=== PATIENT | male | born 1975 | race American Indian/Alaskan Native ===

== ENCOUNTER 2017-02-08 21:44 | Emergency (ER) | payer OTHER ==
[2017-02-08 21:45] VITALS: BMI 37.5
[2017-02-08 22:00] VITALS: RESP 17
--- NOTE | 2017-02-08 22:07 | ED PDOC ---
Arrival/HPI - General Chief Complaint: Seizure Time Seen by Provider: 02/08/17 21:45 Historian: Patient - History of Present Illness Narrative History of Present Illness (Text): 02/08/17 22:02 Tc Cooney is a 42 year old male, whose past medical history includes meningioma , seizure disorder, and asthma, who presents to the ED brought in by EMS accompanied by son status post seizure tonight. Son states patient fell off the bed, was convulsing and foaming at the mouth. Son states patient woke up soon afterwards. Patient states he currently feel fine, states he feels tired with slight headache. Patient notes his last seizure episode was almost 2 years ago. Patient is on Keppra BID (morning and evening), states he has been compliant, and took his usual dose tonight. Patient denies any vision changes, dizziness, neck pain, back pain, focal neurological deficits, nausea, vomiting, bladder incontinence, or any other complaints. Time/Duration: Other (tonight) Symptom Onset: Sudden Symptom Course: Improving Activities at Onset: Rest, Light Context: Home Past Medical History - Provider Review Nursing Documentation Reviewed: Yes - Infectious Disease Hx of Infectious Diseases: None - Tetanus Immunization Tetanus Immunization: Unknown - Cardiac Hx Cardiac Disorders: No - Pulmonary Hx Asthma: Yes - Neurological Hx Neurological Disorder: Yes (hemangioma) Hx Seizures: Yes - HEENT Hx HEENT Disorder: No - Renal Hx Renal Disorder: No - Endocrine/Metabolic Hx Endocrine Disorders: No - Hematological/Oncological Hx Blood Disorders: No - Integumentary Hx Dermatological Disorder: No - Musculoskeletal/Rheumatological Hx Musculoskeletal Disorders: No Hx Falls: Yes - Gastrointestinal Hx Gastrointestinal Disorders: No - Genitourinary/Gynecological Hx Genitourinary Disorders: No - Psychiatric Hx Psychophysiologic Disorder: No Hx Substance Use: No - Past Surgical History Past Surgical History: No Previous - Anesthesia Hx Anesthesia: No - Suicidal Assessment Feels Threatened In Home Enviroment: No Family/Social History - Physician Review Nursing Documentation Reviewed: Yes Family/Social History: No Known Family HX Smoking Status: Current Some Days Smoker Hx Alcohol Use: No Hx Substance Use: No Allergies/Home Meds Allergies/Adverse Reactions: Allergies No Known Allergies Allergy (Verified 01/29/15 05:47) Review of Systems - Physician Review All systems were reviewed & negative as marked: Yes - Review of Systems Constitutional: Normal. absent: Fevers, Night Sweats Eyes: Normal. absent: Vision Changes ENT: Normal Respiratory: Normal. absent: SOB Cardiovascular: Normal. absent: Chest Pain Gastrointestinal: Normal. absent: Abdominal Pain, Diarrhea, Nausea, Vomiting Genitourinary Male: Normal. absent: Frequency, Hematuria, Urinary Output Changes Musculoskeletal: Normal. absent: Back Pain, Neck Pain Skin: Normal. absent: Rash Neurological: Headache, Seizure Endocrine: Normal Hemo/Lymphatic: Normal Psychiatric: Normal Physical Exam Vital Signs Reviewed: Yes Vital Signs Temp Pulse Resp BP Pulse Ox 02/09/17 00:08 91 H 17 101/70 97 02/08/17 21:58 97.8 F 100 H 17 138/71 98 Temperature: Afebrile Blood Pressure: Normal Pulse: Tachycardic Respiratory Rate: Normal Appearance: Positive for: Well-Appearing, Non-Toxic, Comfortable Pain Distress: None Mental Status: Positive for: Alert and Oriented X 3 Finger Stick Blood Glucose: 113 - Systems Exam Head: Present: Atraumatic, Normocephalic Pupils: Present: PERRL Extroacular Muscles: Present: EOMI Conjunctiva: Present: Normal Mouth: Present: Moist Mucous Membranes Neck: Present: Normal Range of Motion Respiratory/Chest: Present: Clear to Auscultation, Good Air Exchange. No: Respiratory Distress, Accessory Muscle Use Cardiovascular: Present: Regular Rate and Rhythm, Normal S1, S2. No: Murmurs Abdomen: Present: Normal Bowel Sounds. No: Tenderness, Distention, Peritoneal Signs Back: Present: Normal Inspection Lower Extremity: Present: Normal Inspection. No: Edema Neurological: Present: GCS=15, CN II-XII Intact, Speech Normal, Motor Func Grossly Intact, Normal Sensory Function, Normal Cerebellar Funct, Memory Normal. No: Gait Normal Skin: Present: Warm, Dry, Normal Color. No: Rashes Psychiatric: Present: Alert, Oriented x 3, Normal Insight, Normal Concentration Medical Decision Making ED Course and Treatment: 02/08/17 22:12 Impression: A 42 year old male presents with seizure tonight. Plan: -- Chest X -Ray -- CT Head -- EKG -- Labs -- Reassess and disposition Progress Notes: Reviewed EKG, NSR at 100 bpm. Slightly prolonged QT. Nonspecific ST/T Wave changes. 02/08/17 23:49 Reviewed radiology, CXR shows no acute processes. CT Head shows: Brain: No acute intracranial hemorrhage. No significant white matter disease. No edema. Interval enlargement of the dural based mass within the right frontal convexity, seen on previous examination performed 06/24/2014. This mass previously measured approximately 22 x 16 millimeters, and now measures 30 x 19 mm. Adjacent vasogenic edema is also identified extending into the right frontal lobe, an interval change from previous examination. Increased central calcification is also noted. Ventricles: No significant ventriculomegaly. Bones: No acute displaced fracture. Sinuses: Unremarkable as visualized. No acute sinusitis. Mastoid air cells: Unremarkable as visualized. No mastoid effusion. IMPRESSION: No acute intracranial hemorrhage. Interval increase in the size of the dural based mass within the right frontal convexity with adjacent vasogenic edema. 02/08/17 23:53 Pt made aware of the change in his CT scan, aware he has a meningioma. Pt states he is scheduled for an MRI and would prefer to follow-up with his physicians at [facility]. Pt will sign out AMA. Pt explained risks of leaving without further evaluation, including possible recurrent seizure and . This patient is choosing to leave against medical advice. I have personally explained to the patient that choosing to do so may result in permanent bodily harm or . I have discussed at great length that without further evaluation and monitoring there may be unforeseen circumstances and/or deterioration causing permanent bodily harm or as a result of their choice. The patient is alert, oriented, and shows the mental capacity to make clear decisions regarding the patients health care at this time. The patient continues to wish to leave against medical advice. Patient is aware of the importance of following up as instructed. The patient has been advised that they should return to the ED immediately if they change their mind at any time, or if their condition begins to change or worsen in any way. - Lab Interpretations Lab Results: 02/08/17 22:05 02/08/17 22:05 Lab Results 02/08/17 22:05: WBC 9.1, RBC 5.29, Hgb 14.9, Hct 43.3, MCV 81.9, MCH 28.2, MCHC 34.4, RDW 13.0, Plt Count 165, MPV 10.7 02/08/17 22:05: Sodium 138, Potassium 3.5 L, Chloride 102, Carbon Dioxide 21, Anion Gap 19, BUN 15, Creatinine 1.2, Est GFR ( Amer) > 60, Est GFR (Non- Af Amer) > 60, Random Glucose 119 H, Calcium 9.4, Total Bilirubin 0.4, AST 25, ALT 39, Alkaline Phosphatase 106, Lactate Dehydrogenase 503, Total Creatine Kinase 204, Troponin I < 0.01, Total Protein 7.0, Albumin 4.4, Globulin 2.6, Albumin/Globulin Ratio 1.7 02/08/17 22:05: PT 11.6, INR 1.06, APTT 27.5 I have reviewed the lab results: Yes - RAD Interpretation Radiology Orders: 02/08/17 22:01 HEAD W/O CONTRAST [CT] Stat 02/08/17 22:02 CHEST ONE VIEW [RAD] Stat Drafter Castings: ED Physician, Radiologist - EKG Interpretation Interpreted by ED Physician: Yes Type: 12 lead EKG - Scribe Statement Leanne Ríos under supervision of Valentine Mae Provider Scribe Attestation: All medical record entries made by the Scribe were at my direction and personally dictated by me. I have reviewed the chart and agree that the record accurately reflects my personal performance of the history, physical exam, medical decision making, and the department course for this patient. I have also personally directed, reviewed, and agree with the discharge instructions and disposition. Disposition/Present on Arrival - Present on Arrival Any Indicators Present on Arrival: No History of DVT/PE: No History of Uncontrolled Diabetes: No Urinary Catheter: No History of Decub. Ulcer: No History Surgical Site Infection Following: None - Disposition Have Diagnosis and Disposition been Completed?: Yes Diagnosis: Seizure, Brain mass Disposition: AGAINST MEDICAL ADVICE Disposition Time: 00:05 Condition: STABLE Forms: [employer] (Czech)
[2017-02-08 22:16] LABS: HEMATOCRIT 43.3 % (42.0-52.0); MEAN CELL VOLUME 81.9 fl (80.0-105.0); MEAN CORPUSCULAR HEMOGLOBIN 28.2 pg (25.0-35.0); MEAN CORPUSCULAR HGB CONC 34.4 g/dl (31.0-37.0); MEAN PLATELET VOLUME 10.7 fl (7.0-11.0); WHITE BLOOD COUNT 9.1 10^3/ul (4.5-11.0)
[2017-02-08 22:25] LABS: ALB/GLOB RATIO 1.7 (1.1-1.8); ALKALINE PHOSPHATASE 106 U/L (38-126); ALT/SGPT 39 U/L (7-56); AST/SGOT 25 U/L (17-59); BILIRUBIN,TOTAL 0.4 mg/dL (0.2-1.3); BLOOD UREA NITROGEN 15 mg/dL (7-21); CALCIUM 9.4 mg/dL (8.4-10.5); CARBON DIOXIDE 21 mmol/L (21-33); CHLORIDE 102 mmol/L (98-107); GFR AFRICAN-AMERICAN > 60; GLUCOSE,RANDOM 119 mg/dL (70-110); POTASSIUM 3.5 mmol/L (3.6-5.0); SODIUM 138 mmol/L (132-148)
[2017-02-08 22:27] LABS: INR 1.06 (0.93-1.08); PARTIAL THROMBOPLASTIN TIME 27.5 Seconds (25.1-36.5)
[2017-02-08 22:36] LABS: TROPONIN I < 0.01 ng/mL
--- NOTE | 2017-02-08 23:31 | CT ---
EXAM: CT Head Without Intravenous Contrast CLINICAL HISTORY: 42 years old, male; Pain and signs and symptoms; Other: Seizure; Headache; Headache not specified; Patient HX: HX seizures TECHNIQUE: Axial computed tomography images of the head/brain without intravenous contrast. All CT scans at this facility use one or more dose reduction techniques, viz.: automated exposure control; ma/kV adjustment per patient size (including targeted exams where dose is matched to indication; i.e. head); or iterative reconstruction technique. COMPARISON: CT - HEAD W/O CONTRAST 2014-06-24 03:20 FINDINGS: Brain: No acute intracranial hemorrhage. No significant white matter disease. No edema. Interval enlargement of the dural based mass within the right frontal convexity, seen on previous examination performed 06/24/2014. This mass previously measured approximately 22 x 16 millimeters, and now measures 30 x 19 mm. Adjacent vasogenic edema is also identified extending into the right frontal lobe, an interval change from previous examination. Increased central calcification is also noted. Ventricles: No significant ventriculomegaly. Bones: No acute displaced fracture. Sinuses: Unremarkable as visualized. No acute sinusitis. Mastoid air cells: Unremarkable as visualized. No mastoid effusion. IMPRESSION: No acute intracranial hemorrhage. Interval increase in the size of the dural based mass within the right frontal convexity with adjacent vasogenic edema.
[2017-02-09 00:09] VITALS: BP 101/70; PULSE 91; O2SAT 97
[2017-02-09 00:37] VITALS: TEMP 98
--- NOTE | 2017-02-09 08:43 | RAD ---
PROCEDURE: CHEST RADIOGRAPH, 1 VIEW HISTORY: seizure COMPARISON: 12/27/2014. FINDINGS: LUNGS: The lungs are well inflated and clear. PLEURA: No pneumothorax or pleural fluid seen. CARDIOVASCULAR: Normal. OSSEOUS STRUCTURES: No significant abnormalities. VISUALIZED UPPER ABDOMEN: Normal. OTHER FINDINGS: None. IMPRESSION: No active pulmonary disease.
--- NOTE | 2017-02-09 22:09 | CARD ---
APPROVED REPORT EKG Measurement Heart [id number] <Conclusion> Normal sinus rhythm Possible Left atrial enlargement Prolonged QT Abnormal ECG
== END 2017-02-09 00:39 | disposition left against medical advice (07) ==
LOC: ED 21:44
DX: G93.9 Disorder of brain, unspecified (principal); R56.9 Unspecified convulsions; F17.200 Nicotine dependence, unspecified, uncomplicated